=== PATIENT | female | born 1940 | race Caucasian/White ===

== ENCOUNTER 2017-11-15 10:55 | Emergency (ER) | payer OTHER ==
[~2017-11-15] VITALS: Ht 165.1 cm; Wt 54.5 kg
[2017-11-15] MEDS ORDERED: MEDROL DOSEPAK4 MG PO (13:33)
[2017-11-15] MEDS ORDERED: VALACYCLOVIR1000 MG PO (13:33)
[2017-11-15 13:45] VITALS: BP 140/81
== END 2017-11-15 13:46 | disposition home or self-care (01) ==
LOC: EME 10:55
DX: M79.652 Pain in left thigh (principal); Z90.11 Acquired absence of right breast and nipple; Z90.5 Acquired absence of kidney; Z88.0 Allergy status to penicillin; Z88.5 Allergy status to narcotic agent; Z88.8 Allergy status to other drugs, medicaments and biological substances; Z91.09 Other allergy status, other than to drugs and biological substances
CPT/HCPCS: 73552; 93971; 99281; 99283